=== PATIENT | male | born 1935 | race Caucasian/White ===

== ENCOUNTER → 2018-12-10 | Outpatient (CLI) | payer MEDICARE, OTHER ==
[~2018-12-10] MED LIST: FERROUS SU325 MG/TAB PO; FOLIC ACID PO; PRILOSEC 20MG20 MG PO; TOPROL XL100 MG PO; VITAMIN C500 MG PO
== END ==
LOC: COL.RAD 12:39
DX: I82.4Z1 Acute embolism and thrombosis of unspecified deep veins of right distal lower extremity (principal)
CPT/HCPCS: A9540; A9567

== ENCOUNTER → 2020-06-20 | Outpatient (CLI) | payer MEDICARE, OTHER | LOC: COL.RAD 12:44 | DX: J84.10 Pulmonary fibrosis, unspecified (principal); J98.4 Other disorders of lung; I25.10 Atherosclerotic heart disease of native coronary artery without angina pectoris ==